=== PATIENT | female | born 1960 ===

== ENCOUNTER → 2016-12-16 | Outpatient (CLI) | payer OTHER ==
--- NOTE | 2016-12-16 15:04 | DI ---
LEFT DIAGNOSTIC MAMMOGRAMS, 12/16/2016 8:42 AM: Clinical History: Recall for abnormal screening mammogram. A 6 mm nodular lesion was identified in th e upper outer quadrant at the 1:00-2:00 position. Prior Exam: 11/09/2016. Digital tomosynthesis scans of the left breast are obtained with the [employer] Digital Breast U nit. C-View images are produced in the same projections as in the previous screening exam. CAD review is performed. Breast tissue density is rated as having scattered areas of fibroglandular breast tissue. In the uppe r-outer quadrant in the axillary tail just anterior to the pectoralis major muscle is a spherical low -density well-circumscribed lesion that is consistent with a benign cyst measuring approximately 3 mm in diameter. This is not the same lesion that was identified on the screening mammogram. That lesion is located more anteriorly and is larger. On the mediolateral oblique tomograms, the density is visu alized in similar fashion to the screening mammogram. However, on the craniocaudal tomograms, a discr ete lesion is not identified. The density in question seen on the original screening mammogram probab ly is benign. However, the fact that it appears so discrete on the mediolateral oblique tomogram and cannot be identified with certainty on the craniocaudal tomogram is problematic. I believe a followup diagnostic left mammogram in 6 months would be the optimal way to monitor this area to ensure the le sunil is benign. The remainder of the breast is unremarkable. No abnormal calcifications are noted. Sk in contour, nipple, and lower axillary region are normal. Follow Up: Breast ultrasound is pending. BIRADS: 3: Probably benign finding. Initial short-interval follow-up diagnostic left mammogram sugges herve in 6 months. Assessment: Probably benign finding - short interval follow-up suggested.
--- NOTE | 2016-12-16 15:12 | DI ---
LEFT BREAST ULTRASOUND, 12/16/2016 8:43 AM: Clinical History: Abnormal screening mammogram revealed a new density measuring 6 mm in the upper out er quadrant at the 1:00 to 2:00 position. The diagnostic mammogram performed today shows a 3 mm well- circumscribed low-density lesion located in the axillary tail just anterior to the pectoralis major m uscle. The 6 mm nodule was located closer toward the central axis and could only be identified on the mediolateral oblique tomograms but not on the craniocaudal tomograms. Scans are performed by the technologist and myself through all four quadrants of the left breast with the high resolution linear array probe. Color Doppler ultrasound was also performed. There is a 3 mm spherical cystic lesion located in the axillary tail corresponding to the well-circum scribed lesion seen on the diagnostic mammogram. Closer to the nipple shows no discrete abnormality. Follow Up: A followup diagnostic left mammogram with digital breast tomosynthesis is recommended in 3 months to monitor the larger density seen on the screening and diagnostic mammogram. BIRADS Category: 3: Probably benign finding. Initial short-interval follow-up in 6 months with a left digital breast tomosynthesis diagnostic mammogram suggested as above. The lesion seen on screening m ammography was not completely confirmed on the current diagnostic mammogram. A 3 mm cyst located in t he axillary tail that was identified on the digital breast tomosynthesis scans. Assessment: Probably benign finding - short interval follow-up suggested.
== END ==
LOC: MAMMO 08:34
PROVIDERS: ATTEND Family Medicine
DX: R92.8 Other abnormal and inconclusive findings on diagnostic imaging of breast (principal)
CPT/HCPCS: 76641; G0206; G0279